=== PATIENT | male | born 1975 | race Caucasian/White ===

== ENCOUNTER 2016-12-28 05:43 | Day surgery (SDC) | payer OTHER ==
[~2016-12-28] VITALS: Ht 167.6 cm; Wt 68.0 kg
--- NOTE | ~2016-12-28 | O ---
[facility] [place] [address] OPERATIVE REPORT Name: CELSO ROSALES Room #: DEP [facility]..#: [id number] Admission: 12/28/16 Attend Phys: Hipolito Grossman MD Discharge: 12/28/16 Date of : 73 Report #: [id number] THIS REPORT FOR: //name// CC: Hipolito Mustafa DATE OF SERVICE: 12/28/2016 PREOPERATIVE DIAGNOSIS: Left knee pain with medial meniscus tear. POSTOPERATIVE DIAGNOSIS: Left knee pain with medial meniscus tear. PROCEDURE: Left knee arthroscopy with partial medial meniscectomy. HISTORY: This slender, active fit 41-year-old gentleman complains of left knee pain which has been a persistent problem despite conservative measures. 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 He has tried conservative measures without benefit and has elected to go ahead with left knee arthroscopy. DESCRIPTION OF PROCEDURE: The patient was taken to the operating room where he was placed under general anesthesia. Prophylactic intravenous antibiotics were administered. The left knee and leg were meticulously prepped and draped. A thigh tourniquet was applied and inflated to 300 mmHg. A lateral suprapatellar inflow cannula was placed. The arthroscope and probe were introduced. Various compartments were sequentially visualized and documented with arthroscopic photography. The medial compartment reveals good cartilage on the medial femoral condyle and the medial tibial plateau with only a few areas of rather minor superficial grooving and fissuring. Very limited debridement here was necessary. The medial meniscus did reveal a mildly complex degenerative tear in the mid and posterior aspect. This was primarily at the posterior medial corner extending back toward the posterior horn. This involved about the inner one-third to one-half of the meniscus with some complex vertical and horizontal cleavage tearing. These areas were gently debrided with a small shaver. The outer one-half of the meniscus in this area was still intact and stable and seemed to be functioning well. The more anterior portion of medial meniscus appeared to be fairly normal with only minor fraying along its inner margin and only limited debridement there was necessary. No other significant abnormalities in the medial compartment were identified. The intracondylar notch revealed minor synovial hypertrophy which was debrided for visualization purposes. The cruciate ligaments appeared to be present and functioning normally. There was no significant impingement with full knee extension. No debridement here was necessary. The lateral compartment revealed good cartilage on the lateral femoral condyle and the lateral tibial plateau. The lateral meniscus appeared to be intact and stable. No debridement here was [address] [address] OPERATIVE REPORT Name: CELSO ROSALES Room #: DEP [facility].#: [id number] Admission: 12/28/16 Attend Phys: Hipolito Grossman MD Discharge: 12/28/16 Date of : 73 Report #: [id number]. The patellofemoral articulation revealed only minor fissuring and grooving on the patellar surface and similar minor fissuring at the deepest portion of the trochlea on the distal femur. The patella seemed to track nicely and there was no evidence of any instability. Very limited debridement of some of these areas of superficial fraying and wear were performed. No other significant problems were identified. The suprapatellar pouch revealed minor synovial hypertrophy and some very minor cartilage debris. This was evacuated. The joint was copiously irrigated. All excess fluid was evacuated of the knee. The knee was then injected with 40 mg of Depo-Medrol and 20 mL of 0.5% Marcaine with epinephrine. The puncture sites were closed with interrupted nylon suture. A sterile dressing was applied. The patient was awakened and returned to recovery room in good condition. <ELECTRONICALLY SIGNED> By: Hipolito Grossman MD 12/29/16 0822 [id number] Hipolito Grossman MD /nt
[~2016-12-28 05:43] MED LIST: AMITIZA8 MCG PO; AMOXICILLIN 50500 M1 PO; ATIVAN0.5 MG PO; CELEXA 20 MG TA20 MG PO; CELEXA40 MG PO; COLON HERBAL C1 EACH PO; GAS-X180 MG PO; IBUPROFEN 600600 M1 PO; LEVAQUIN 500 M500 MG PO; MACROBID 100 M100 M1; NOHOMEMEDICATIONS; NORCO 5-325 TA1 EACH PO; OXYCODONE HCL5 M1 PO; VITAMIN D1000 UNI2 PO
[2016-12-28 09:17] VITALS: BP 115/78
[2016-12-28 10:45] VITALS: BP 115/78
== END 2016-12-28 11:45 | disposition home or self-care (01) ==
LOC: OR 05:43 → TBA 05:43 → OR 08:20
DX: M23.222 Derangement of posterior horn of medial meniscus due to old tear or injury, left knee (principal)
CPT/HCPCS: 50010; 50101; 50405; 51038; 54170; 56526; 62110; 62900; 64007; 70005